=== PATIENT | female | born 1995 | race Two or more races ===

== ENCOUNTER 2017-04-20 21:38 | Outpatient (CLI) | payer OTHER ==
[2017-04-20 21:57] VITALS: BP 117/77
[2017-04-26] MEDS ORDERED: PREN1TAB60 PO (13:41)
[2017-04-28] MEDS ORDERED: HYDR-3240 PO (12:28)
[2017-04-28] MEDS ORDERED: IBUP-1222 PO (12:28)
== END 2017-04-20 22:37 | disposition home or self-care (01) ==
LOC: LDOP 21:38
PROVIDERS: ATTEND Obstetrics & Gynecology
DX: O36.8130 Decreased fetal movements, third trimester, not applicable or unspecified (principal); Z3A.38 38 weeks gestation of pregnancy
CPT/HCPCS: 59025; 99201; G0463

== ENCOUNTER 2017-09-06 18:22 | Emergency (ER) | payer OTHER ==
[~2017-09-06] VITALS: Ht 152.4 cm; Wt 58.8 kg
[~2017-09-06 18:22] MED LIST: HYDR-3240 PO; IBUP-1222 PO; PREN1TAB60 PO
[2017-09-06 19:30] LABS: RAPID INFLUENZA A Negative (Negative)
[2017-09-06 19:31] LABS: RAPID INFLUENZA B POSITIVE (Negative)
[2017-09-06 20:04] VITALS: BP 118/79
== END 2017-09-06 21:18 | disposition home or self-care (01) ==
LOC: ED 21:12
DX: J11.1 Influenza due to unidentified influenza virus with other respiratory manifestations (principal); J00 Acute nasopharyngitis [common cold]; J06.9 Acute upper respiratory infection, unspecified
CPT/HCPCS: 87400; 99284